=== PATIENT | male | born 1930 | race Caucasian/White ===

== ENCOUNTER 2017-06-14 18:10 | Emergency (ER) | payer OTHER ==
[~2017-06-14] VITALS: Ht 177.8 cm; Wt 85.0 kg
[2017-06-14 18:31] VITALS: BP 151/67; PULSE 111; RESP 18; TEMP 98.5; O2SAT 99
--- NOTE | 2017-06-14 18:42 | PD ---
HPI Chief Complaint: Head Injury Time Seen by Provider: 18:42 Travel History International Travel<30 days: No Contact w/Intl Traveler<30days: No Traveled to known affect area: No History of Present Illness HPI 86 YO M with PMH of metastatic pancreatic cancer presents to the ED for evaluation after fall from standing at home. The patient states that he just lost his balance, fell backwards, striking his head on the hardwood floor. He denies loss of consciousness. On arrival he denies any somatic complaints. He wants to have the head CT to rule out intracranial hemorrhage. He is unsure of the date of his last tetanus but refuses an update. He states that he begins hospice care tomorrow. PFSH Past Medical History Hx Anticoagulant Therapy: No Social History Tobacco Use: No Allergies-Medications (Allergen,Severity, Reaction): Coded Allergies: walnut (Verified Allergy, Unknown, SWELLING, 06/14/17) Reported Meds & Prescriptions Reported Meds & Active Scripts Active Vistaril (Hydroxyzine Pamoate) 50 Mg Cap 50 Mg PO TID PRN Reported Meloxicam 7.5 Mg Tab 7.5 Mg PO HS Morphine ER (Morphine Sulfate) 15 Mg Tab 15 Mg PO Q4HR PRN Review of Systems Except as stated in HPI: all other systems reviewed are Neg Physical Exam Narrative GENERAL: Well-nourished, white male, sitting up in the stretcher, wearing a c- collar, in no acute distress. SKIN: Focused skin assessment warm/dry. 4 cm laceration at the crown of the skull with no active bleeding. Widely distributed, well circumscribed, subcentimeter, periodic, nonblanching rash over the entire skin surface with intermixed excoriations. No signs of infection. HEAD: Normocephalic. 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 EYES: No scleral icterus. Left eyelid with ptosis and small amount amount of yellow discharge. NECK: Supple, trachea midline. No JVD or lymphadenopathy. No tenderness to palpation of the midline. No limitations to range of motion. CARDIOVASCULAR: Regular rate and rhythm without murmurs, gallops, or rubs. RESPIRATORY: Breath sounds clear and equal bilaterally. No accessory muscle use. GASTROINTESTINAL: Abdomen soft, non-tender, nondistended. Active bowel sounds. MUSCULOSKELETAL: No cyanosis, or edema. Moves extremities spontaneously. BACK: Nontender without obvious deformity. No CVA tenderness. Data Data Last Documented VS Vital Signs Date Time Temp Pulse Resp B/P (MAP) Pulse Ox O2 Delivery O2 Flow Rate FiO2 06/14/17 19:55 Room Air 06/14/17 18:31 98.5 111 18 151/67 (95) [address] Brain W/O Iv Contrast(Rout) (06/14/17 ) Ct Cerv Spine W/O Contrast (06/14/17 ) Lidocaine 1% Inj (Xylocaine 1% Inj) (06/14/17 19:30) Lidocaine 1% Inj (50 Ml) (Xylocaine 1% I (06/14/17 19:45) Ed Discharge Order (06/14/17 20:16) [facility] Medical Decision Making Medical Screen Exam Complete: Yes Emergency Medical Condition: Yes Differential Diagnosis Laceration versus skull fracture versus ICH versus cervical subluxation versus fracture versus other Narrative Course 86-year-old male with PMH of metastatic pancreatic cancer presents to the ED after fall from standing. Patient states that he struck his head on the hardwood floor. He denies loss of consciousness. He states that he is starting hospice care tomorrow and does not wish to have his tetanus updated. He does consent to CT of the head and neck to rule out intracranial hemorrhage or fracture. I was reviewed. On physical exam the patient has a for similar laceration of the crown without any active bleeding. He is in a c-collar but there is no midline tenderness or limitations to range of motion. 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 He declines any pain medication at this time. He does complain of a pruritic rash which is chronic. He states that his taken several antihistamines with no improvement of his symptoms. He is currently taking 15 mg morphine a few times a day to treat his pruritus. CT of head and neck reveal no acute injury per radiology read. Laceration repair was performed. Please see my procedure note for details. The patient's family is unsure what medications he is tried for itching. I'll prescribe a brief course of Vistaril. Patient's instructed to keep his wound clean, dry, covered, have suture removal in 10-14 days, follow- up with his primary care provider. Patient and his family indicated understanding of the instructions and are agreeable to the care plan. The patient is stable and discharged home. Procedures Procedure Narrative LACERATION LOCATION: [place] of the scalp LENGTH: 4cm NUMBER OF STITCHES/GRACIELA: 6 REPAIR: The area of the laceration was prepped with Betadine and sterilely draped. The laceration was infiltrated with 1% lidocaine. The wound was copiously irrigated and explored without evidence of foreign body, tendon injury or neurovascular injury. The wound was closed using surgical graciela. This was a single layer repair. A sterile dressing was applied. The patient was advised to keep the dressing clean and dry. Patient tolerated the procedure well. Diagnosis Primary Impression: Scalp laceration Qualified Codes: S01.01XA - Laceration without foreign body of scalp, initial encounter Additional Impressions: Fall from standing Qualified Codes: W19.XXXA - Unspecified fall, initial encounter Chronic pruritic rash in adult Referrals: Primary Care Physician Patient Instructions: Acute Wounds (ED), General Instructions Additional Instructions: Rest, hydrate. Return to normal, gentle activities as tolerated. Do not change the dressing for 24 hours You may bathe normally. Do not submerge the wound. After bathing pat of wound dry. Allow the wound to air dry for 10-15 minutes. Apply a thin layer of antibiotic ointment and a clean, dry dressing. Utilize [id number] pain medications, as described on the label, as needed. Return for signs of infection such as warmth, redness, oozing, fevers. Suture removal in 10-14 days. Return to the ED for any urgent or emergent medical condition. Scripts Hydroxyzine Pamoate (Vistaril) 50 Mg Cap 50 MG PO TID Y for ITCHING, #30 CAP 0 Refills Prov: Imelda Quiñones MD 06/14/17 Disposition: 01 DISCHARGE HOME Condition: Stable Yoselin Shelton Jun 14, 2017 18:42
[2017-06-14] MEDS ORDERED: MELO7.5T27 PO (18:49)
[2017-06-14] MEDS ORDERED: MORP1TAB24 PO (18:49)
[2017-06-14] MEDS ORDERED: LIDOCAINE HCL 1% 30 ML VIAL INFIL ONE (19:30)
--- NOTE | 2017-06-14 19:35 | RADRPT ---
EXAM DATE/TIME: 06/14/2017 19:05 [facility] COMPARISON: No previous studies available for comparison. INDICATIONS : Trauma, fall. Laceration to back of head. RADIATION DOSE: 41.90 CTDIvol (mGy) ; Tabletop CT Head MEDICAL HISTORY : Carcinoma, pancreas. Hypertension. Parotid gland cancer. SURGICAL HISTORY : Parotid gland surgery. ENCOUNTER: Initial ACUITY: 1 day PAIN SCALE: 10/10 LOCATION: cranial TECHNIQUE: Multiple contiguous axial images were obtained of the head. Using automated exposure control and adj ustment of the mA and/or kV according to patient size, radiation dose was kept as low as reasonably a chievable to obtain optimal diagnostic quality images. DICOM format image data is available electro nically for review and comparison. FINDINGS: CEREBRUM: The ventricles are normal for age. No evidence of midline shift, mass lesion, hemorrhage or acute in farction. No extra-axial fluid collections are seen. POSTERIOR FOSSA: The cerebellum and brainstem are intact. The 4th ventricle is midline. The cerebellopontine angle i s unremarkable. EXTRACRANIAL: The visualized portion of the orbits is intact. SKULL: The calvaria is intact. No evidence of skull fracture. CONCLUSION: No acute disease. Georgi Brandon Jr., MD on June 14, 2017 at 19:32 Board Certified Radiologist. This report was verified electronically.
[2017-06-14] MEDS ORDERED: LIDOCAINE HCL 1% 50 ML VIAL INFIL ONE (19:45)
--- NOTE | 2017-06-14 19:53 | RADRPT ---
EXAM DATE/TIME: 06/14/2017 19:05 [facility] COMPARISON: No previous studies available for comparison. INDICATIONS : Trauma, fall. Hit back of head. RADIATION DOSE: 22.48 CTDIvol (mGy) MEDICAL HISTORY : Carcinoma, pancreas. Hypertension. Parotid gland cancer. SURGICAL HISTORY : Parotid gland surgery. ENCOUNTER: Initial ACUITY: 1 day PAIN SCALE: 6/10 LOCATION: neck TECHNIQUE: Volumetric scanning of the cervical spine was performed. Multiplanar reconstructions in the sagittal, coronal and oblique axial planes were performed. Using automated exposure control and adjustment o f the mA and/or kV according to patient size, radiation dose was kept as low as reasonably achievable to obtain optimal diagnostic quality images. DICOM format image data is available electronically f or review and comparison. FINDINGS: VERTEBRAE: Normal vertebral body height. ALIGNMENT: There is loss of the natural lordosis with straightening of the cervical spine and mild grade 1 anter olisthesis of C4 on C5. C2-C3: Bony uncovertebral hypertrophy generates mild left neural foraminal narrowing. The right is patent. C entral canal is patent. C3-C4: Central canal is patent without disc bulge or protrusion. Bony uncovertebral hypertrophy generates mi ld right and moderate left neural foraminal narrowing. C4-C5: The bony spinal canal is normal in size. No evidence of disc bulge or herniation. The neural forami na are bilaterally patent. C5-C6: A broad-based disc osteophyte complex observed which flattens the ventral portion of the cord and linda rows the lateral recesses bilaterally. Bony uncovertebral hypertrophy generates significant right and moderate left neural foraminal narrowing. C6-C7: A broad-based disc osteophyte complex observed which flattens the ventral portion of the cord and linda rows the lateral recesses bilaterally. Bony uncovertebral hypertrophy generates significant right and moderate left neural foraminal narrowing. C7-T1: The bony spinal canal is normal in size. No evidence of disc bulge or herniation. The neural forami na are bilaterally patent. CONCLUSION: 1. No fracture or dislocation. 2. Advanced degenerative changes. Georgi Brandon Jr., MD on June 14, 2017 at 19:49 Board Certified Radiologist. This report was verified electronically.
[2017-06-14] MEDS ORDERED: VIST50CA PO (20:28)
--- NOTE | 2017-06-15 05:16 | EKG ---
Date Performed: 06/14/2017 Time Performed: 19:48:45 PTAGE: 86 years EKG: SINUS TACHYCARDIA RIGHT BUNDLE BRANCH BLOCK LEFT ANTERIOR FASCICULAR BLOCK LEFT VENTRICULAR HYPERTROPHY AND ST-T CHANGE ABNORMAL ECG NO PREVIOUS TRACING DOCTOR: Shady Sharp Interpretating Date/Time 06/15/2017 05:16:10
== END 2017-06-14 20:18 | disposition home or self-care (01) ==
LOC: NEPC 18:10
DX: S01.01XA Laceration without foreign body of scalp, initial encounter (principal); R21 Rash and other nonspecific skin eruption; C25.9 Malignant neoplasm of pancreas, unspecified; C79.9 Secondary malignant neoplasm of unspecified site; R94.31 Abnormal electrocardiogram [ECG] [EKG]; W01.0XXA Fall on same level from slipping, tripping and stumbling without subsequent striking against object, initial encounter; Y92.009 Unspecified place in unspecified non-institutional (private) residence as the place of occurrence of the external cause; Z79.891 Long term (current) use of opiate analgesic
CPT/HCPCS: 12002; 70450; 72125; 93005